=== PATIENT | female | born 1945 | race Caucasian/White ===

== ENCOUNTER → 2019-07-14 | Outpatient (CLI) | payer MEDICARE ==
--- NOTE | 2019-07-15 07:16 | BD ---
EXAMINATION TYPE: Axial Bone Density DATE OF EXAM: 07/14/2019 COMPARISON: Prior DEXA bone scan May 03, 2016 CLINICAL HISTORY: Known osteoporosis. Height: 59 Weight: 104.8 FRAX RISK QUESTIONS: Alcohol (3 or more units per day): no Family History (Parent hip fracture): no Glucocorticoids (More than 3mos): no (Ex: prednisone, prednisolone, methylprednisolone, dexamethasone, and hydrocortisone). History of Fracture in Adulthood: yes Secondary Osteoporosis: 1. Type 1 Diabetes: no 2. Hyperthyroidism: no 3. Menopause before 45: no 4. Malnutrition: no 5. Chronic liver disease: no Rheumatoid Arthritis: no Current Tobacco Use: yes RISK FACTORS HISTORY OF: Family History of Osteoporosis: no Active: yes Diet low in dairy products/other sources of calcium: yes Postmenopausal woman: age 53 Lost more than 2 inches in height since high school: yes MEDICATIONS: lisinopril, Osteoporosis Medications: alendronate How Lon years Additional History: EXAM MEASUREMENTS: Bone mineral densitometry was performed using the My 1% System. Bone mineral density as measured about the Lumbar spine is: ----- L1-L4(G/cm2): 0.786 T Score Values are as follows: ----- L2: -3.1 ----- L3: -3.6 ----- L4: -3.4 ----- L1-L4: -3.3 Bone mineral density has: increased 0.1 % since study of: 05.03.2016 Bone mineral density about the R hip (g/cm2): 0.592 Bone mineral density about the L hip (g/cm2): 0.591 T Score values are as follows: -----R Neck: -3.2 -----L Neck: -3.2 -----R Total: -2.8 -----L Total: -2.7 Bone mineral density has: decreased -2.5 % since study of: 05.03.2016 IMPRESSION: Osteoporosis (T Score less than -2.5) redemonstrated. Bone density is slightly diminished from prior study in both hips. There remains increased fracture risk and therapy is usually indicated based on age. Re-Screen 1-2 years. NOTE: T-SCORE=SD OF THE YOUNG ADULT MEAN.
== END | disposition home or self-care (01) ==
LOC: RADBDWWP 13:12
PROVIDERS: ATTEND Family Medicine
DX: M81.0 Age-related osteoporosis without current pathological fracture (principal)
CPT/HCPCS: 77080

== ENCOUNTER → 2021-04-12 | Outpatient (CLI) | payer MEDICARE | END | disposition home or self-care (01) | LOC: LABWHC1 12:55 | PROVIDERS: ATTEND Orthopaedic Surgery | DX: S52.571A Other intraarticular fracture of lower end of right radius, initial encounter for closed fracture (principal); S72.111A Displaced fracture of greater trochanter of right femur, initial encounter for closed fracture; X58.XXXA Exposure to other specified factors, initial encounter | CPT/HCPCS: 36415; 82306 ==

== ENCOUNTER 2021-04-18 07:30 | Inpatient (IN) | payer MEDICARE ==
[2021-04-18] MEDS ORDERED: HYDROcodone/APAP 5-325MG 1 EACH TAB PO PRN ×2 (10:21→19:14)
[2021-04-18] MEDS ORDERED: TRANEXAMIC ACID 1,000 MG in SODIUM CHLORIDE 0.9% 100 ML IVPB ONE ×4 (10:25)
--- NOTE | 2021-04-18 12:10 | P.HPOR ---
History of Present Illness H&P Date: 04/18/21 This patient is a 76-year-old female with past medical history of hypertension that sustained an injury to her right wrist and right hip after a fall in her garage on 04/11/21. She was able to get up and walk into the house after her injury. She was initially evaluated at [facility] emergency department, where x-rays were obtained. The patient was diagnosed with a right distal radius fracture, as well as a right displaced fracture of the right greater trochanter of the right hip. Patient followed up with Dr. Vanegas in the office on 04/12/21. She was referred to Dr. Jessica Boo for management of her right distal radius fracture. In regards to her right hip, the patient was instructed to remain nonweightbearing on the right lower extremity and an MRI was obtained. MRI revealed an acute, displaced fracture of the right greater trochanter with almost complete intertrochanteric extension. Non- operative versus operative treatment was discussed in the office with Dr. Vanegas. Patient was direct admitted to [facility] on 04/18/21, for operative fixation of right intertrochanteric hip fracture with a short intramedullary hip screw. Internal medicine has been consulted for pre-operative medical evaluation and clearance prior to surgery. Medications and Allergies Allergies Allergy/AdvReac Type Severity Reaction Status Date / Time Unable to Assess Allergy Verified 04/18/21 08:15 Physical Examination Examination performed by Dr. Vanegas in the office on 04/15/21. There are no overlying scars or evidence of prior wounds over the right hip. Active and passive range of motion of the right hip is limited secondary to pain. There is tenderness with palpation of the right greater trochanter. Motor function intact, sensation is intact to light touch throughout the leg. Results MRI films from [facility] the right hip dated 04/14/21 reveal fracture of the right intertrochanteric femoral neck with large displaced avulsion fragment at the posterior greater trochanteric facet as well as non- displaced fracture component extending incompletely towards the lesser trochanter. Diffuse gluteus, adductor and proximal quadriceps muscle edema about the right hip and diffuse superficial edema and at the right gluteus and lateral thigh soft tissues. Right gluteus medius and minimum tendinosis. Mild chondral degenerative signal at the right hip joint and suspected labral tear. Assessment and Plan Assessment: Acute, displaced fracture of the right greater trochanter with almost complete intertrochanteric extension. Plan: - We will plan for operative fixation of right intertrochanteric hip fracture with a short intramedullary hip screw this afternoon, pending medical clearance. Internal medicine has been consulted for pre-operative medical evaluation. - Pain management as needed. - Strict non-weight bearing right lower extremity. - NPO diet.
--- NOTE | 2021-04-18 13:23 | P.HPIM ---
History of Present Illness H&P Date: 04/18/21 This is a 76-year-old female with past medical history significant for osteoporosis and essential hypertension that was directly admitted to the hospital from orthopedic office for surgical intervention regarding a displaced fracture of the right great trochanteric. Patient had the fall last week at home and landed on her right side and since then she has been evaluated by orthopedic surgery and most recently an MRI showed evidence of a displaced fracture of the right greater trochanteric for which she is admitted for surgical repair. I was asked to see the patient for medical clearance. Patient told me that other than hypertension and no suberosis she does not have any known medical history. No previous cardiac history or stenting. No diabetes or chronic kidney disease. Patient informed me that she did not have any lab work done in the last year or so. She otherwise denies any complaints. She is fairly active usually prior to the accident and is able to find one flight of stairs with no difficulty. She denies any chest pain or shortness of breath today. Review of Systems Review of system: 14 points review of systems were obtained and were negative except to what were mentioned in the HPI. Past Medical History Past Medical History: Hypertension Additional Past Medical History / Comment(s): Osteoporosis History of Any Multi-Drug Resistant Organisms: None Reported Past Surgical History: Tonsillectomy Past Anesthesia/Blood Transfusion Reactions: No Reported Reaction Past Psychological History: No Psychological Hx Reported Smoking Status: Never smoker Past Alcohol Use History: Occasional Past Drug Use History: None Reported - Past Family History Father Family Medical History: Cancer Additional Family Medical History / Comment(s): Lung Medications and Allergies Home Medications Medication Instructions Recorded Confirmed Type Cholecalciferol [Vitamin D3 (25 25 mcg PO DAILY 04/18/21 04/18/21 History Mcg = 1000 Iu)] Lisinopril [Prinivil] 10 mg PO DAILY 04/18/21 04/18/21 History Multivitamins, Thera [Multivitamin 1 tab PO DAILY 04/18/21 04/18/21 History (formulary)] Risedronate Sodium [Actonel] 35 mg PO TRIVEDI 04/18/21 04/18/21 History Allergies Allergy/AdvReac Type Severity Reaction Status Date / Time No Known Allergies Allergy Unverified 04/18/21 11:31 Physical Exam Vitals: Vital Signs Temp Pulse Resp BP Pulse Ox 04/18/21 10:37 98.2 F 73 16 127/76 97 Intake and Output 04/17/21 04/18/21 04/18/21 22:59 06:59 14:59 Other: Weight 47 kg General: The patient is awake and alert, in no distress Eye: there is normal conjunctiva bilaterally. Neck: The neck is supple, there is no JVD. Cardiovascular: Normal S1-S2, no S3-S4, no murmurs. Respiratory: Lungs clear to auscultation bilaterally Gastrointestinal: Abdomen is soft, nontender Musculoskeletal: There is no pedal edema. Neurological:. Speech is normal. Skin: Skin is warm and dry Thrombosis Risk Factor Assmnt - Choose All That Apply Any of the Below Risk Factors Present?: No Other Risk Factors: Yes Each Risk Factor Represents 2 Points: Age 61-74 years, Arthroscopic surgery Each Risk Factor Represents 5 Points: Hip, pelvis, or leg fracture (< 1 month) Thrombosis Risk Factor Assessment Total Risk Factor Score: 9 Thrombosis Risk Factor Assessment Level: High Risk Assessment and Plan Assessment: This is a 76-year-old female admitted to the hospital underorthopedic surgery for planned surgical repair of a displaced fracture of the right greater trochanteric. I reviewed her 12-lead EKG today showing normal sinus rhythm. I would order CBC and BMP to assure lab work is within acceptable range. Other than that patient is cleared for surgery according to the modified RCRI score. 1. Essential hypertension, resume home dose of lisinopril 2. Right hip fracture, surgical management, DVT prophylaxis, and pain control per orthopedic protocol 3. Underlying osteoporosis
[2021-04-18 13:52] LABS: Basophils % (A) 1 %; Eosinophils # (A) 0.1 k/uL (0-0.7); Eosinophils % (A) 2 %; HCT 35.3 % (34.0-46.0); HGB 11.6 gm/dL (11.4-16.0); Lymphocytes # (A) 1.6 k/uL (1.0-4.8); Lymphocytes % (A) 25 %; MCH 31.2 pg (25.0-35.0); MCHC 32.8 g/dL (31.0-37.0); Mean Platelet Volume 7.2; Monocytes # (A) 0.3 k/uL (0-1.0); Monocytes % (A) 4 %; Neutrophils # (A) 4.2 k/uL (1.3-7.7); Neutrophils % (A) 65 %; Platelet Count 316 k/uL (150-450); RBC 3.71 m/uL (3.80-5.40); RDW 12.4 % (11.5-15.5); WBC 6.4 k/uL (3.8-10.6)
[2021-04-18 14:08] LABS: African American GFR (CKD) >90 (>60 ml/min/1.73 sqM); Anion Gap 7 mmol/L; Blood Urea Nitrogen 15 mg/dL (7-17); Calcium 9.4 mg/dL (8.4-10.2); Carbon Dioxide 29 mmol/L (22-30); Chloride 101 mmol/L (98-107); Glucose 100 mg/dL (74-99); Non-African American GFR(CKD) >90 (>60 ml/min/1.73 sqM); Potassium 4.4 mmol/L (3.5-5.1); Sodium 137 mmol/L (137-145)
[2021-04-18] MEDS ORDERED: LACTATED RINGERS 1,000 ML IV ONE ×2 (16:24→18:56)
[2021-04-18] MEDS ORDERED: ONDANSETRON 4 MG/2 ML VIAL ONE (16:27)
[2021-04-18] MEDS ORDERED: DEXAMETHASONE SOD PHOSPHATE 4 MG/ML 1 ML VIAL IVP ONE (16:28)
[2021-04-18] MEDS ORDERED: ONDANSETRON 4 MG/2 ML VIAL IVP ONE ×2 (16:30→17:14)
[2021-04-18] MEDS ORDERED: DEXAMETHASONE SOD PHOSPHATE 4 MG/ML 1 ML VIAL IV ONE (17:14)
[2021-04-18] MEDS ORDERED: LIDOCAINE 1% (10MG/ML) FOR IV START INTRADERMA PRN (17:14)
[2021-04-18] MEDS ORDERED: LACTATED RINGERS 1,000 ML IV SCH (17:15)
[2021-04-18] MEDS ORDERED: ceFAZolin 1,000 MG VIAL ONE (17:19)
[2021-04-18] MEDS ORDERED: LIDOCAINE 1% INJ 10MG/ML (20 ML MDV) ONE (17:19)
[2021-04-18] MEDS ORDERED: SODIUM CHLORIDE 0.9% 100 ML BAG ONE ×2 (17:19)
[2021-04-18] MEDS ORDERED: fentaNYL (PF) 50 MCG/ML 2 ML AMP ONE (17:19)
[2021-04-18] MEDS ORDERED: KETAMINE 10 MG/ML 20 ML VIAL ONE (17:19)
[2021-04-18] MEDS ORDERED: PROPOFOL 10 MG/ML 20 ML VIAL IV ONE (17:19)
[2021-04-18] MEDS ORDERED: MIDAZOLAM 2 MG/2 ML VIAL ONE (17:19)
[2021-04-18] MEDS ORDERED: TRANEXAMIC ACID 1,000 MG/10 ML VIAL ONE (17:19)
[2021-04-18] MEDS: ROPIVACAINE/EPI/CLONIDINE/KET 50 ML SYRINGE MISCELLANE PRN ×2 (18:43→18:48)
[2021-04-18] MEDS ORDERED: ONDANSETRON 4 MG/2 ML VIAL IVP PRN (19:14)
[2021-04-18] MEDS ORDERED: hydrOXYzine pamoate 25 MG CAP PO PRN (19:14)
[2021-04-18] MEDS ORDERED: HYDROmorphone 0.5 MG/0.5 ML SYRINGE IVP PRN ×2 (19:14)
[2021-04-18] MEDS ORDERED: NALOXONE 0.4 MG/ML 1 ML VIAL IV PRN (19:14)
[2021-04-18] MEDS ORDERED: HYDROmorphone 0.2 MG/1 ML SYRINGE IVP PRN (19:14)
--- NOTE | 2021-04-18 19:36 | P.OP ---
Date of Procedure: 04/18/21 Preoperative Diagnosis: Right greater trochanteric fracture with almost complete intertrochanteric extension seen on MRI Postoperative Diagnosis: Same Procedure(s) Performed: Operative fixation of right intertrochanteric hip fracture with short intramedullary hip screw Anesthesia: spinal Surgeon: Jonatan Vanegas Clinical Technician #1: Juan Skaggs Estimated Blood Loss (ml): 50 IV fluids (ml): 1,100 Pathology: none sent Condition: stable Disposition: PACU Indications for Procedure: The patient is a very pleasant previously healthy 76-year-old female who sustained a fall a little over a week ago resulting in a right greater tro chanter fracture and right distal radius fracture. I saw the patient in the office and ordered an MRI of her right hip. This showed almost complete extension of the fracture line across the trochanteric region. We discussed nonsurgical treatment with protected weightbearing using a walker and serial x- rays versus prophylactic stabilization which would allow early mobilization. Discussed the pros and cons of both and I look the patient and her make a decision regarding treatment after hearing all of her options. Ultimately due to the patient's right distal radius fracture and desire to early weight-bear the patient and her elected to go forward with prophylactic stabilization. We discussed the potential risks and Occasions of surgery including but certainly not limited to scar anesthesia, superficial infection, deep infection, delayed wound healing, nonunion, malunion, systematic hardware, progression of hip arthritis, DVT, PE, other medical complications, and inab ility to regain preinjury level of function, and possibly loss of life or limb. The patient and her acknowledged other less common complications are possible. They provided their consent to go forward with surgery. Description of Procedure: The patient was identified in preoperative holding and the correct right leg was marked with my initials. I reviewed the consent form with the patient and all of her questions were answered. The patient was then brought back to the operating room. She is given a spinal anesthetic while on the gurney. Boots for Naty table were placed. The patient was then carefully transferred onto a hand table. A post was placed. The boots were secured into the spars. The right arm was carefully draped over her chest with a pillow and tape. The contralateral left leg was scissored and abductor. The right leg was the adductor and internally rotated to facilitate imaging. A timeout was performed identifying the correct patient, operative extremity, and procedure. I began by taking orthogonal views of the proximal right femur with fluoroscopy. The right leg was then prepped and draped in the standard sterile fashion. I began by making a small stab incision just proximal to the tip of the greater trochanter. A 3.2 mm guide pin was placed centered over the greater trochanter on the AP view and: Near with the canal and the lateral view. The guidepin was advanced down the femur and opening reamer was used to gain access to the canal. A ball-tipped guidewire was placed. I reamed up to an 11.5 mm diameter reamer. A short 10 mm nail was dispensed and hooked up to a targeting arm. This was gently tapped over the guidewire and fully seated. The ball-tipped guidewire was removed. The triple sleeve was placed through the targeting arm and a stab incision was made through the skin and fascia down to the lateral cortex of the femur. A guidepin was placed into the low center position on the AP view and c entered in the head on the lateral view. I then measured, reamed, and placed a partially threaded lag screw into the head of the femur. Using the targeting arm and making a third stab incision the distal interlocking screw was placed. The targeting arm was removed. Final fluoroscopic images were taken. The wounds were thoroughly irrigated and closed in layers. A sterile dressing was applied. The patient was then carefully taken off and a table, transferred to a gurney, and brought to recovery having tolerated the procedure well. Juan Skaggs PA-C was acquired as a skilled clinical lab assistant. Plan: The patient is going to weight-bear as tolerated on her right leg. She'll receive 2 doses of postoperative antibiotics. She will need aspirin for DVT prophylaxis. Discharge planning and process.
[2021-04-18] MEDS: LACTATED RINGERS 1,000 ML IV SCH (20:29)
[2021-04-18] MEDS ORDERED: SENNOSIDES-DOCUSATE SODIUM 1 EACH TAB PO SCH (21:00)
[2021-04-18] MEDS: ASPIRIN 81 MG PO SCH (21:51)
[2021-04-18] MEDS: HYDROcodone/APAP 5-325MG 1 EACH TAB PO PRN (21:51)
[2021-04-19] MEDS: LACTATED RINGERS 1,000 ML IV SCH (04:05)
[2021-04-19] MEDS: HYDROcodone/APAP 5-325MG 1 EACH TAB PO PRN (06:26)
[2021-04-19] MEDS ORDERED: HYDROmorphone 0.5 MG/0.5 ML SYRINGE IVP PRN (07:00)
--- NOTE | 2021-04-19 07:07 | FL ---
EXAMINATION TYPE: FL guidance operating room, XR Hip Complete RT DATE OF EXAM: 04/18/2021 CLINICAL HISTORY: Right hip fracture. TECHNIQUE: Fluoroscopy. Intraoperative 2 views right hip. COMPARISON: None. FINDINGS: Fluoroscopic guidance was provided during open reduction and internal fixation procedure p erformed by Dr. Vanegsa. A total of 1 minute 51 seconds of fluoroscopic time was utilized during th e procedure and 9 spot images was acquired. Intraoperative images acquired show placement of intramedullary kt with femoral neck fixating screw in smaller transverse fixating screw through the right proximal femur. Satisfactory alignment is seen after reduction and fixation. IMPRESSION: As Above.
[2021-04-19] MEDS: ASPIRIN 81 MG PO SCH (07:52)
[2021-04-19] MEDS ORDERED: lisinopriL 10 MG TAB PO SCH (09:00)
[2021-04-19] MEDS ORDERED: MULTIVITAMINS, THERA 1 EACH TAB PO SCH (09:00)
[2021-04-19] MEDS ORDERED: CHOLECALCIFEROL 25 MCG (1000 IU) TABLET PO SCH (09:00)
[2021-04-19 11:41] LABS: Basophils # (A) 0.02 X 10*3/uL (0.00-0.10); Basophils % (A) 0.3 %; Eosinophils # (A) 0.03 X 10*3/uL (0.04-0.35); Eosinophils % (A) 0.4 %; HCT 30.8 % (37.2-46.3); HGB 9.8 g/dL (12.0-15.0); Lymphocytes # (A) 1.48 X 10*3/uL (0.90-5.00); Lymphocytes % (A) 19.5 %; MCH 30.1 pg (27.0-32.0); MCHC 31.8 g/dL (32.0-37.0); MCV 94.5 fL (80.0-97.0); Mean Platelet Volume 9.8 fL (9.5-12.2); Monocytes # (A) 0.65 X 10*3/uL (0.20-1.00); Monocytes % (A) 8.6 %; Neutrophils # (A) 5.35 X 10*3/uL (1.80-7.70); Neutrophils % (A) 70.4 %; Platelet Count 313 X 10*3/uL (140-440); RBC 3.26 X 10*6/uL (4.10-5.20); RDW 12.3 % (11.5-14.5); WBC 7.59 X 10*3/uL (4.50-10.00)
[2021-04-19 11:47] LABS: Basophils % (A) 0 %; Eosinophils # (A) 0.1 k/uL (0-0.7); Eosinophils % (A) 1 %; HCT 34.6 % (34.0-46.0); HGB 11.3 gm/dL (11.4-16.0); Lymphocytes # (A) 2.2 k/uL (1.0-4.8); Lymphocytes % (A) 25 %; MCH 30.8 pg (25.0-35.0); MCHC 32.5 g/dL (31.0-37.0); MCV 94.5 fL (80.0-100.0); Mean Platelet Volume 7.2; Monocytes # (A) 0.4 k/uL (0-1.0); Monocytes % (A) 5 %; Neutrophils # (A) 5.7 k/uL (1.3-7.7); Neutrophils % (A) 65 %; Platelet Count 353 k/uL (150-450); RBC 3.66 m/uL (3.80-5.40); RDW 12.8 % (11.5-15.5); WBC 8.9 k/uL (3.8-10.6)
--- NOTE | 2021-04-19 14:07 | P.PN ---
Subjective Patient was seen and evaluated by me this morning. She is postoperative day #1 status post operative fixation of right intertrochanteric hip fracture with IM hip screw Patient is doing well today. She was sitting in the chair when I saw her. She denies any pain. Blood pressure within acceptable range. Objective - Vital Signs Vital signs: Vital Signs Temp 98 F 04/19/21 08:00 Pulse 77 04/19/21 08:00 Resp 17 04/19/21 08:00 BP 130/80 04/19/21 08:00 Pulse Ox 96 04/19/21 08:00 Intake & Output 04/18/21 04/19/21 04/19/21 18:59 06:59 18:59 Intake Total 1000 1590 Output Total 50 Balance 950 1590 Weight 47 kg Intake: IV 1000 250 Intake, IV Titration 1100 Amount Lactated Ringers 1,000 ml 1000 @ 100 mls/hr IV .Q10H [facility] Rx#:[id number] ceFAZolin 2 gm In Sodium 100 Chloride 0.9% 50 ml @ 100 mls/hr IVPB Q8HR [facility]OMEO Rx# :[id number] Oral 240 Output: Estimated Blood Loss 50 Other: # Voids 2 2 - Exam General: The patient is awake and alert, in no distress Eye: there is normal conjunctiva bilaterally. Neck: The neck is supple, there is no JVD. Cardiovascular: Normal S1-S2, no S3-S4, no murmurs. Respiratory: Lungs clear to auscultation bilaterally Gastrointestinal: Abdomen is soft, nontender Musculoskeletal: There is no pedal edema. Neurological:. Speech is normal. Skin: Skin is warm and dry - Labs CBC & Chem 7: 04/19/21 11:20 04/18/21 13:29 Labs: Abnormal Lab Results - Last 24 Hours (Table) 04/18/21 04/19/21 04/19/21 Range/Units 13:29 06:59 11:20 RBC 3.26 L 3.66 L (4.10-5.20) X 10*6/uL Hgb 9.8 L 11.3 L (12.0-15.0) g/dL Hct 30.8 L (37.2-46.3) % MCHC 31.8 L (32.0-37.0) g/dL Immature Gran # 0.06 H (0.00-0.04) X 10*3/uL Eosinophils # 0.03 L (0.04-0.35) X 10*3/uL Creatinine 0.49 L (0.52-1.04) mg/dL Glucose 100 H (74-99) mg/dL Assessment and Plan Assessment: This is a 76-year-old female admitted to the hospital underorthopedic surgery for planned surgical repair of a displaced fracture of the right greater trochanteric. She is postoperative day #1 status post right greater trochanteric fixation with IM hip screw. Postoperative care management, DVT prophylaxis, and pain control. Orthopedic 1. Essential hypertension, resume home dose of lisinopril 2. Underlying osteoporosis Patient is medically cleared for discharge. I will sign off on her. Call back as needed.
--- NOTE | 2021-04-19 14:18 | P.DS ---
Providers Date of admission: 04/18/21 09:07 Expected date of discharge: 04/19/21 Attending physician: Jonatan Vanegas Consults: 04/18/21 10:21 Consult Physician Urgent Consulting Provider: Gee Arango Consult Reason/Comments: medical clearance for surgery today Do you want consulting provider notified?: Yes Primary care physician: [facility] Course: This is a 74-year-old male who is direct admitted to [facility] on 04/18/21. Patient sustained an injury to the right hip on 04/11/21 after a ground-level fall. She was initially evaluated at [facility], x-rays were taken revealed a displaced greater trochanter fracture. Patient followed up with Dr. Vanegas as an outpatient. MRI was obtained and revealed an acute displaced fracture of the greater trochanter with complete extension into the trochanteric region. Operative versus nonoperative treatment was discussed, and patient opted for operative treatment. Patient was admitted to our service for surgical intervention and care. Patient was taken to surgery for operative fixation of right intertrochanterichip fracture with short intramedullary hip screw on 04/18/[address] Vanegas. The procedure was performed without complication or sequelae. The patient is doing fairly well postoperatively. Vital signs and labs are stable on postoperative day #1. Patient was examined bedside today with Dr. Vanegas. Patient states she is feeling very well and the pain in her right hip is well controlled. She is tolerating her diet well. Patient was up with physical therapy today and did well with a walker. She denies chest pain, shortness of breath, nausea, vomiting, fevers, chills. Vital signs stable. On examination, patient is alert and orientated x3. On inspection of the right hip, there is no active bleeding or drainage through the dressing.. Neurovascular status is intact throughout the right lower extremity with motor and sensation fully intact. Calf is soft and nontender. 2+ dorsalis pedis pulse and a brisk capillary refill is present. Patient is discharged home in good condition, pending medical clearance.. Patient will follow-up with Dr. Vanegas in the office in 2 weeks. Please see med rec for accurate list of discharge medication. Plan - Discharge Summary Discharge Rx Participant: No New Discharge Prescriptions: New Docusate [Colace] 100 mg PO BID #60 capsule Aspirin 81 mg PO BID 30 Days #60 tab HYDROcodone/APAP 5-325MG [[place] 5-325] 1 tab PO Q6HR PRN 7 Days #20 tab PRN Reason: Pain Continue Multivitamins, Thera [Multivitamin (formulary)] 1 tab PO DAILY Lisinopril [Prinivil] 10 mg PO DAILY Cholecalciferol [Vitamin D3 (25 Mcg = 1000 Iu)] 25 mcg PO DAILY Risedronate Sodium [Actonel] 35 mg PO TRIVEDI Discharge Medication List Cholecalciferol [Vitamin D3 (25 Mcg = 1000 Iu)] 25 mcg PO DAILY 04/18/21 [History] Lisinopril [Prinivil] 10 mg PO DAILY 04/18/21 [History] Multivitamins, Thera [Multivitamin (formulary)] 1 tab PO DAILY 04/18/21 [History] Risedronate Sodium [Actonel] 35 mg PO TRIVEDI 04/18/21 [History] Aspirin 81 mg PO BID 30 Days #60 tab 04/19/21 [Rx] Docusate [Colace] 100 mg PO BID #60 capsule 04/19/21 [Rx] HYDROcodone/APAP 5-325MG [[place] 5-325] 1 tab PO Q6HR PRN 7 Days #20 tab 04/19/21 [Rx] Follow up Appointment(s)/Referral(s): Aniya Scherer Senior [NON-STAFF] - ([facility] will call you to schedule your home care/home physical therapy visits. ) Jonatan Vanegas MD [Medical Doctor] - 2 Weeks Activity/Diet/Wound Care/Special Instructions: Weight bear as tolerated on operative leg with a walker. Take pain medications as needed. Aspirin for blood clot prevention. Daily dressing changes with adaptic, 4x4s, tegaderm. Follow-up in the office in [address] Vanegas. Call the office with any questions or concerns, Discharge Disposition: HOME WITH HOME HEALTH SERVICES
[2021-04-19 15:05] VITALS: BP 131/82; PULSE 76; RESP 16; TEMP 98
== END 2021-04-19 16:10 | disposition home health service (06) | DRG 482 ==
LOC: UNDOADMIN 09:07 → 4SSUR 09:07 → 2ORMAIN 09:07
PROVIDERS: ADMIT Orthopaedic Surgery; ATTEND Orthopaedic Surgery
PROC: 0QH Lower Bones, Insertion (ICD-10-PCS; 2021-04-18)
PROC: 8E0YXBF Computer Assisted Procedure of Lower Extremity, With Fluoroscopy (ICD-10-PCS; 2021-04-18)
PROC: 0QS606Z Reposition Right Upper Femur with Intramedullary Internal Fixation Device, Open Approach (ICD-10-PCS; principal; 2021-04-18 07:30)
DX: S72.111A Displaced fracture of greater trochanter of right femur, initial encounter for closed fracture (principal); M81.0 Age-related osteoporosis without current pathological fracture; S52.501D Unspecified fracture of the lower end of right radius, subsequent encounter for closed fracture with routine healing; I10 Essential (primary) hypertension; M25.551 Pain in right hip; S73.191A Other sprain of right hip, initial encounter; Z20.822 Contact with and (suspected) exposure to COVID-19; W18.30XA Fall on same level, unspecified, initial encounter; Z79.899 Other long term (current) drug therapy
CPT/HCPCS: 73502; 80048; 82306; 85025; 93005

== ENCOUNTER → 2022-10-20 | Outpatient (CLI) | payer MEDICARE ==
--- NOTE | 2022-10-20 19:16 | CA ---
Transthoracic Echo Report Name: Jen Agustin Age: 77 Gender: F : 1945 Exam Date: 10/20/2022 11:43 Exam Location: [place] [facility] Ht (in): 59 Wt (lb): 100 Ordering Physician: Leonarda Mireles MD Attending/Referring Phys: Director Of Rehabilitation And Wellness Rl Lagunas RDCS Procedure CPT: Indications: R01.1 Cardiac Hx: HTN Technical Quality: Good Contrast 1: Total Dose (mL): Contrast 2: Total Dose (mL): MEASUREMENTS (Male / Female) Normal Values 2D ECHO LV Diastolic Diameter PLAX 2.4 cm 4.2 - 5.9 / 3.9 - 5.3 cm LV Systolic Diameter PLAX 1.4 cm LV Fractional Shortening PLAX 41.1 % IVS Diastolic Thickness 1.1 cm 0.6 - 1.0 / 0.6 - 0.9 cm IVS Systolic Thickness 1.4 cm LVPW Diastolic Thickness 1.3 cm 0.6 - 1.0 / 0.6 - 0.9 cm LVPW Systolic Thickness 2.2 cm LV Relative Wall Thickness 1.0 RV Internal Dim ED PLAX 2.2 cm LVOT Diameter 1.4 cm LA Systolic Diameter LX 2.0 cm 3.0 - 4.0 / 2.7 - 3.8 cm LV Diastolic Volume MOD BP 65.9 cm??? 67 - 155 / 56 - 104 cm??? LV Systolic Volume MOD BP 19.1 cm??? 22 - 58 / 19 - 49 cm??? LV Ejection Fraction MOD BP 71.0 % >= 55 % LV Stroke Volume MOD BP 46.8 cm??? LV Diastolic Volume MOD 4C 71.6 cm??? LV Systolic Volume MOD 4C 22.4 cm??? LV Ejection Fraction MOD 4C 68.7 % LV Stroke Volume MOD 4C 49.2 cm??? LV Diastolic Length 4C 7.3 cm LV Systolic Length 4C 5.6 cm LV Diastolic Volume MOD 2C 59.4 cm??? LV Systolic Volume MOD 2C 14.8 cm??? LV Ejection Fraction MOD 2C 75.0 % LV Stroke Volume MOD 2C 44.5 cm??? LV Diastolic Length 2C 7.2 cm LV Systolic Length 2C 5.0 cm Ascending Aorta Diameter 2.6 cm M-MODE Aortic Root Diameter MM 3.1 cm LA Systolic Diameter MM 3.0 cm LA Ao Ratio MM 1.0 MV E Point Septal Separation 0.8 cm AV Cusp Separation MM 1.6 cm DOPPLER AV Peak Velocity 137.5 cm/s AV Peak Gradient 7.6 mmHg AI Peak Velocity 303.9 cm/s AI Peak Gradient 36.9 mmHg AI Deceleration [place] 156.2 cm/s??? AI Pressure Half Time 564.1 ms MV Deceleration [place] 329.7 cm/s??? MR Peak Velocity 329.6 cm/s MR Peak Gradient 43.4 mmHg Mitral E Point Velocity 58.3 cm/s Mitral A Point Velocity 97.7 cm/s Mitral E to A Ratio 0.6 MV Deceleration Time 177.0 ms TR Peak Velocity 238.7 cm/s TR Peak Gradient 22.8 mmHg Right Ventricular Systolic Press 32.8 mmHg PV Peak Velocity 95.6 cm/s PV Peak Gradient 3.7 mmHg FINDINGS Left Ventricle Left ventricular ejection fraction is estimated at _55-60%. Mild concentric left ventricular hypertrophy. Grade 1 diastolic dysfunction. Normal basal systolic function. Right Ventricle Normal right ventricular size and function. RVSP- 33 mm Hg. Right Atrium Normal right atrial size. Left Atrium Normal left atrial size. Mitral Valve Mitral valve thickened. No mitral stenosis. Styy-sa-hzlibgqj mitral regurgitation. Aortic Valve Trileaflet aortic valve. Diffuse thickening (sclerosis) of the aortic valve cusps without reduced excursion. No aortic stenosis. Iqdd-zv-adyqorcy aortic regurgitation. Tricuspid Valve Puhs-vg-ziupikgy tricuspid regurgitation. Pulmonic Valve Trace pulmonic regurgitation. Pericardium Normal pericardium. No pericardial effusion. Aorta Normal size aortic root and proximal ascending aorta. CONCLUSIONS Normal LV systolic function [id number] MR Mild aortic insufficiency Previewed by: Dr. Sukumar Arora MD (Electronically Signed) Final Date: 20 October 2022 19:15
== END | disposition home or self-care (01) ==
LOC: RADECHMAIN 11:32
PROVIDERS: ATTEND Family Medicine
DX: I35.1 Nonrheumatic aortic (valve) insufficiency (principal); R01.1 Cardiac murmur, unspecified
CPT/HCPCS: 93306

== ENCOUNTER → 2022-11-16 | Outpatient (CLI) | payer MEDICARE ==
--- NOTE | 2022-11-21 07:21 | MM ---
Reason for Exam: Screening (asymptomatic). Last mammogram was performed 6 year(s) and 6 month(s) ago. Patient History: Menarche at age 15. Patient has no children. Postmenopausal. , Benign Cyst Aspiration. , Benign Cyst Aspiration. Risk Values: Marisela 5 year model risk: 2.0%. NCI Lifetime model risk: 4.2%. Prior Study Comparison: 05/03/2016 Bilateral Screening Mammogram, [facility]. Tissue Density: The breast tissue is extremely dense which could obscure a lesion on mammography. Findings: Analyzed By CAD. There is no suspicious group of microcalcifications or new suspicious mass in either breast. Overall Assessment: Negative, BI-RAD 1 Management: Screening Mammogram of both breasts in [address] [facility] will attempt to contact patient to return for supplemental views and ultrasound if indicated. Patient should continue monthly self-breast exams. A clinical breast exam by your physician is recommended on an annual basis. This exam should not preclude additional follow-up of suspicious palpable abnormalities. Note on Marisela scores and lifetime risk: 1. A Marisela score greater than 3% is considered moderate risk. If this is the case, consider specialist referral to assess eligibility for a risk reducing agent. 2. If overall lifetime risk for the development of breast cancer is 20% or higher, the patient may qualify for future screening with alternating mammogram and breast MRI. Electronically signed and approved by: Jayden Collier DO
== END | disposition home or self-care (01) ==
LOC: RADMAMWWP 12:38
PROVIDERS: ATTEND Family Medicine
DX: Z12.31 Encounter for screening mammogram for malignant neoplasm of breast (principal); Z78.0 Asymptomatic menopausal state
CPT/HCPCS: 77063; 77067

== ENCOUNTER → 2023-08-23 | Outpatient (CLI) | payer MEDICARE ==
--- NOTE | 2023-08-23 12:18 | CT ---
EXAMINATION TYPE: CT sinus wo con DATE OF EXAM: 08/23/2023 COMPARISON: None HISTORY: Epistaxis CT DLP: 468 mGycm CONTRAST: 0 mL of Isovue 300 The paranasal sinuses are examined in the axial plane at 2 mm thick sections. Reconstructed images i n the coronal plane were obtained. There is dental amalgam scatter artifact Mucosal thickening is present throughout the bilateral maxillary sinus. Retention cyst in the posteri or lateral right maxillary sinus. The ethmoid air cells are clear. The sphenoid sinuses are clear. Minimal mucosal thickening is within the inferior right frontal sinus. The septum is evaluated. There is septal deviation to the right. Right septal spur is present. Bilat eral samanta bullosa are present. No suspicious etiology for axis. The ostiomeatal units are patent. IMPRESSION: 1. No suspicious etiology for epistaxis. 2. Mucosal thickening within the maxillary sinuses and inferior right frontal sinus. 3. Right septal deviation.
== END | disposition home or self-care (01) ==
LOC: RADCTMAIN 11:47
PROVIDERS: ATTEND Otolaryngology
DX: J34.89 Other specified disorders of nose and nasal sinuses (principal); R04.0 Epistaxis; J34.2 Deviated nasal septum
CPT/HCPCS: 70486

== ENCOUNTER 2023-09-19 09:41 | Day surgery (SDC) | payer MEDICARE ==
[~2023-09-19 09:41] MED LIST: HYDROmorphone 0.5 MG/0.5 ML SYRINGE IVP PRN; LIDOCAINE 1% (10MG/ML) FOR IV START INTRADERMA PRN; MIDAZOLAM 2 MG/2 ML VIAL IV PRN
[2023-09-19] MEDS: LACTATED RINGERS 1,000 ML IV SCH (10:16)
[2023-09-19] MEDS: OXYMETAZOLINE 0.05% NASL SPRAY 1 SPRAY BOTTLE EA NOSTRIL PRN (10:20)
[2023-09-19] MEDS: FAMOTIDINE 20 MG/2 ML VIAL IV PRN (10:25)
[2023-09-19] MEDS: ONDANSETRON 4 MG/2 ML VIAL IVP ONE (10:32)
[2023-09-19] MEDS: DEXAMETHASONE SOD PHOSPHATE 4 MG/ML 1 ML VIAL IV ONE (10:32)
[2023-09-19] MEDS ORDERED: PHENYLEPHRINE-0.9% NACL SYG 1,000 MCG/10 ML SYRINGE ONE (11:25)
[2023-09-19] MEDS ORDERED: MIDAZOLAM 2 MG/2 ML VIAL ONE (11:25)
[2023-09-19] MEDS ORDERED: SUCCINYLCHOLINE CHLORIDE 200 MG/10 ML VIAL IV ONE (11:25)
[2023-09-19] MEDS ORDERED: LIDOCAINE 1% INJ 10MG/ML (20 ML MDV) ONE (11:25)
[2023-09-19] MEDS ORDERED: PROPOFOL 10 MG/ML 20 ML VIAL IV ONE (11:25)
[2023-09-19] MEDS ORDERED: ePHEDrine 50 MG/ML 1 ML VIAL ONE (11:25)
[2023-09-19] MEDS ORDERED: fentaNYL (PF) 50 MCG/ML 2 ML AMP ONE (11:25)
[2023-09-19] MEDS: LIDOCAINE 1%-EPI 1:100,000 50 ML VIAL SUBMUCOSAL ONE (11:46)
--- NOTE | 2023-09-19 12:03 | P.OP ---
Date of Procedure: 09/19/23 Preoperative Diagnosis: Left posterior epistaxis Postoperative Diagnosis: Same Procedure(s) Performed: Bilateral nasal endoscopy under Anesthesia with selective cauterization of left middle turbinate Anesthesia: BELTRAN Surgeon: Faisal Stanley Estimated Blood Loss (ml): 0 Pathology: none sent Condition: stable Disposition: PACU Indications for Procedure: This 78 show white female whose had difficulties with recurrent left posterior epistaxis. CT was unremarkable . She has not having any epistaxis over the last 2-1/2 weeks since she was last seen in the office Operative Findings: Small approximate 2 mm hemangioma left anterior medial middle turbinate, septum deviated to the right Description of Procedure: Patient was brought in the operative suite and placed in a supine position. Patient underwent induction of general anesthesia with oral endotracheal intubation without difficulty. The patient was prepped and draped in usual aseptic fashion. Orbits were in the operative field for monitoring throughout the case. Full 0 nasal endoscopy was performed bilaterally. No abnormalities other than septal spur noted on the right. Left medial anterior middle turbinate had approximate 2 mm hemangioma which was vaporized with suction cautery at a setting of 12. No other bleeding points were noted medial or lateral to the middle turbinate or otherwise in the nasal cavities. The patient was then allowed to emerge from general anesthesia having tolerated procedure well was extubated in the operating suite and transferred to postop recovery area in satisfactory condition.
[2023-09-19 12:48] VITALS: TEMP 97.1
[2023-09-19 13:25] VITALS: RESP 18
[2023-09-19 14:02] VITALS: BP 124/81; PULSE 75
== END 2023-09-19 14:03 | disposition home or self-care (01) ==
LOC: OR 09:41
PROVIDERS: ATTEND Otolaryngology
DX: R04.0 Epistaxis (principal); I10 Essential (primary) hypertension; J32.0 Chronic maxillary sinusitis; J34.2 Deviated nasal septum; F17.200 Nicotine dependence, unspecified, uncomplicated; M81.0 Age-related osteoporosis without current pathological fracture; Z79.899 Other long term (current) drug therapy; Z90.89 Acquired absence of other organs; Z98.890 Other specified postprocedural states
CPT/HCPCS: 31238; J2250; J0330; J1100; J2405; J0690; J2001; J3010; J3490; J2704; J2371